=== PATIENT | female | born 1990 ===

== ENCOUNTER 2018-04-30 15:24 | Emergency (ER) | payer MEDICAID ==
--- NOTE | 2018-04-30 15:47 | ED PDOC ---
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 Pain is constant, but it worsen with deep inspiration. Patient denies abdominal pain, fever, sob, urinary symptoms, POWELL, neck pain, diplopia, dysarthria, weakness, paresthesais, or abnormal gait. Time/Duration: Other (see hpi) Context: Home Past Medical History - Provider Review Nursing Documentation Reviewed: Yes - Cardiac Hx Cardiac Disorders: Yes - Pulmonary Hx Respiratory Disorders: Yes Hx Pulmonary Embolism: Yes - Gastrointestinal Hx Gastrointestinal Disorders: Yes Hx Crohn's Disease: Yes - Psychiatric Hx Substance Use: No - Surgical History Hx Cholecystectomy: Yes Other/Comment: IVC Filter Family/Social History - Physician Review Nursing Documentation Reviewed: Yes Family/Social History: Other (noncontributory) Smoking Status: Light Smoker < 10 Cigarettes Daily Hx Alcohol Use: No Hx Substance Use: No Allergies/Home Meds Allergies/Adverse Reactions: Allergies acetaminophen [From Percocet] Allergy (Verified 04/30/18 15:35) URTICARIA morphine Allergy (Verified 04/30/18 15:35) URTICARIA oxycodone [From Percocet] Allergy (Verified 04/30/18 15:35) URTICARIA Review of Systems - Review of Systems Constitutional: Normal. absent: Fatigue, Weight Change, Fevers Eyes: Normal ENT: Normal Respiratory: Normal. absent: SOB, Cough Cardiovascular: Chest Pain. absent: Palpitations, Edema, Calf Pain, MORALES, Orthopnea, Syncope Gastrointestinal: Normal. absent: Abdominal Pain, Nausea, Vomiting Genitourinary Female: Normal. absent: Dysuria, Frequency, Hematuria Musculoskeletal: Normal Skin: Normal. absent: Rash Neurological: Dizziness. absent: Headache, Focal Weakness, Gait Changes, Speech Changes, Facial Droop, Disequilibrium Endocrine: Normal Hemo/Lymphatic: Normal Psychiatric: Normal Physical Exam Vital Signs Temp Pulse Resp BP Pulse Ox 04/30/18 16:09 98.4 F 66 17 116/67 98 Temperature: Afebrile Blood Pressure: Normal Pulse: Regular Respiratory Rate: Normal Appearance: Positive for: Well-Appearing, Non-Toxic, Comfortable Pain Distress: None Mental Status: Positive for: Alert and Oriented X 3 - Systems Exam Head: Present: Atraumatic, Normocephalic Pupils: Present: PERRL Extroacular Muscles: Present: EOMI Conjunctiva: Present: Normal Mouth: Present: Moist Mucous Membranes Neck: Present: Normal Range of Motion Respiratory/Chest: Present: Clear to Auscultation, Good Air Exchange. No: Respiratory Distress, Accessory Muscle Use, Wheezes, Decreased Breath Sounds, Rales, Retracting, Rhonchi, Tender to Palpation Cardiovascular: Present: Regular Rate and Rhythm, Normal S1, S2. No: Murmurs Abdomen: No: Tenderness, Distention, Peritoneal Signs, Rebound, Guarding Back: Present: Normal Inspection. No: CVA Tenderness, Midline Tenderness, Paraspinal Tenderness, Pain with Leg Raise Upper Extremity: Present: Normal Inspection, Normal ROM, NORMAL PULSES. No: Cyanosis, Edema Lower Extremity: Present: Normal Inspection, NORMAL PULSES, Normal ROM. No: Edema Neurological: Present: GCS=15, CN II-XII Intact, Speech Normal, Motor Func Grossly Intact, Normal Sensory Function, Normal Cerebellar Funct, Gait Normal Skin: Present: Warm, Dry, Normal Color. No: Rashes Psychiatric: Present: Alert, Oriented x 3, Normal Insight, Normal Concentration Medical Decision Making ED Course and Treatment: 04/30/18 20:23 Re-evaluation. Patient feels better. Discussed results and plan with patient who expresses understanding. All questions answered and there is agreement with the plan to discharge home with instructions. Patient stable for discharge. Return if symptoms persist or worsen. Patient stated Pepcid IVP improved her symptoms, and she is requesting similar medication. Patient was recommended to f/u PMD tomorrow, and to return to ED if symptoms worsen. Re-evaluation Time: 20:24 Reassessment Condition: Re-examined, Improved - Lab Interpretations Lab Results: 04/30/18 15:55 04/30/18 15:55 Lab Results 04/30/18 17:50: Urine Color Yellow, Urine Appearance Clear, Urine pH 8.0, Ur Specific [place] 1.015, Urine Protein Negative, Urine Glucose (UA) Negative, Urine Ketones Negative, Urine Blood Negative, Urine Nitrate Negative, Urine Bilirubin Negative, Urine Urobilinogen 0.2, Ur Leukocyte Esterase Negative, Urine HCG, Qual Negative 04/30/18 15:55: Sodium 142, Potassium 3.9, Chloride 104, Carbon Dioxide 26, Anion Gap 16, BUN 11, Creatinine 0.6 L, Est GFR ( Amer) > 60, Est GFR ( Non-Af Amer) > 60, Random Glucose 102, Calcium 9.7, Magnesium 1.8, Total Bilirubin 0.3, AST 28, ALT 24, Alkaline Phosphatase 75, Lactate Dehydrogenase 374, Total Creatine Kinase 69, Troponin I < 0.01, Total Protein 7.9, Albumin 4.6 , Globulin 3.3, Albumin/Globulin Ratio 1.4 04/30/18 15:55: PT 11.7, INR 1.03, APTT 36.8 H 04/30/18 15:55: WBC 7.4, RBC 4.40, Hgb 13.4, Hct 39.2, MCV 89.1, MCH 30.5, MCHC 34.2, RDW 13.5, Plt Count 140, MPV 13.0 H, Gran % 60.2, Lymph % (Auto) 32.4, [place] % (Auto) 5.8, Eos % (Auto) 1.5, Baso % (Auto) 0.1, Gran # 4.45, Lymph # ( Auto) 2.4, [place] # (Auto) 0.4, Eos # (Auto) 0.1, Baso # (Auto) 0.01 I have reviewed the lab results: Yes Interpretation: No clinic. lab abnormalty - RAD Interpretation Narrative RAD Interpretations (Text): 04/30/18 19:56 Chest x-rays: [facility] 04/30/18 20:25 CT Scan FINDINGS: Heart, aorta and Pulmonary arteries: Heart size is normal. There is no pericardial effusion.There is no aneurysm or dissection.There are no pulmonary emboli. Lungs and pleural spaces: Trachea and main bronchi are patent.There is no pneumothorax. There is minimal scarring at the right apex. There is a small granuloma at the right apex.There is dependent atelectasis bilaterally. There is no lobar or segmental consolidation. There are no effusions. Mediastinum: The esophagus is unremarkable. There is residual thymic tissue in anterior mediastinum. There are no pathologically enlarged mediastinal or hilar nodes. Thyroid: Thyroid is unremarkable Bones/joints: There are no acute osseous abnormalities. Soft tissues: unremarkable Upper abdomen: There are no acute abnormalities in the visualized portion of the abdomen.The spleen is enlarged. The gallbladder is absent. IMPRESSION: No aneurysm, dissection or pulmonary embolus; splenomegaly Additional nonemergent findings as described above. Radiology Orders: 04/30/18 15:48 CHEST PORTABLE [RAD] Stat 04/30/18 15:49 ANGIO CHEST PE PROTOCOL [CT] Stat - EKG Interpretation Interpreted by ED Physician: Yes (NSR @ [address] changes) Type: 12 lead EKG Comparison: No previous EKG avail. - Medication Orders Current Medication Orders: Discontinued Medications Sodium Chloride (Sodium Chloride 0.9%) 1,000 mls @ 999 mls/hr IV .Q1H1M STA Stop: 04/30/18 16:50 Last Admin: 04/30/18 17:05 Dose: 999 mls/hr eMAR Start Stop Document 04/30/18 17:05 [facility] (Rec: 04/30/18 17:05 [id number] Intravenous Solution Start Date 04/30/18 Start Time 17:05 End Date 04/30/18 End time 18:05 Total Infusion Time 60 Famotidine (Pepcid 20mg/50ml Premix) 20 mg in 50 mls @ 100 mls/hr IVPB STAT STA Stop: 04/30/18 16:26 Last Admin: 04/30/18 17:04 Dose: 100 mls/hr eMAR Start Stop Document 04/30/18 17:04 [facility] (Rec: 04/30/18 17:05 [facility]-[id number]) Intravenous Solution Start Date 04/30/18 Start Time 17:05 End Date 04/30/18 End time 17:35 Total Infusion Time 30 Disposition/Present on Arrival - Present on Arrival Any Indicators Present on Arrival: No History of DVT/PE: Yes History of Uncontrolled Diabetes: No Urinary Catheter: No History of Decub. Ulcer: No History Surgical Site Infection Following: None - Disposition Have Diagnosis and Disposition been Completed?: Yes Diagnosis: Non-cardiac chest pain Disposition: HOME/ ROUTINE Disposition Time: 20:32 Patient Plan: Discharge Condition: IMPROVED Discharge Instructions (ExitCare): Acid Reflux (Gastroesophageal Reflux Disease ), Adult (DC) Additional Instructions: Call private doctor for follow up visit in 1-2 days. Take medication as instructed. Return to emergency if symptoms worsen. Prescriptions: Famotidine [Pepcid] 40 mg PO DAILY #20 tablet Sucralfate [Carafate] 1 gm PO DAILY #20 tab Referrals: Cecil Rios MD [Primary Care Provider] - Follow up with primary Rolando Snell MD [Medical Doctor] - Follow up with primary Forms: [facility] ([place]), WORK NOTE
[2018-04-30] MEDS ORDERED: Sodium Chloride 0.9% 1,000 ML IV STA (15:50)
[2018-04-30] MEDS ORDERED: Famotidine 20mg/50ml 20 MG/50 ML BAG IVPB STA (15:57)
[2018-04-30 16:10] VITALS: TEMP 98.4
[2018-04-30 16:16] LABS: ALB/GLOB RATIO 1.4 (1.1-1.8); ALBUMIN 4.6 g/dL (3.0-4.8); ALT/SGPT 24 U/L (7-56); AST/SGOT 28 U/L (14-36); BLOOD UREA NITROGEN 11 mg/dL (7-21); CALCIUM 9.7 mg/dL (8.4-10.5); GFR AFRICAN-AMERICAN > 60; GFR NON-AFRICAN AMERICAN > 60
[2018-04-30 16:17] LABS: BASO # 0.01 K/mm3 (0.0-2.0); BASO % 0.1 % (0.0-3.0); EOS # 0.1 (0.0-0.7); EOS % 1.5 % (1.5-5.0); GRAN # 4.45 (1.4-6.5); GRAN % 60.2 % (50.0-68.0); HEMOGLOBIN 13.4 g/dL (12.0-16.0); LYMPH # 2.4 (1.2-3.4); LYMPH % 32.4 % (22.0-35.0); MEAN CELL VOLUME 89.1 fl (80.0-105.0); MEAN CORPUSCULAR HEMOGLOBIN 30.5 pg (25.0-35.0); MEAN CORPUSCULAR HGB CONC 34.2 g/dl (31.0-37.0); MONO # 0.4 (0.1-0.6); MONO % 5.8 % (1.0-6.0); RBC 4.4 10^6/uL (3.5-6.1); RED CELL DISTRIBUTION WIDTH 13.5 % (11.5-14.5); WHITE BLOOD COUNT 7.4 10^3/ul (4.5-11.0)
[2018-04-30 16:27] LABS: TROPONIN I < 0.01 ng/mL
[2018-04-30] MEDS ORDERED: Iohexol 240 (50 ml) ONE (16:51)
[2018-04-30 17:48] LABS: INR 1.03 (0.93-1.08); PARTIAL THROMBOPLASTIN TIME 36.8 Seconds (25.1-36.5); PROTHROMBIN TIME 11.7 SECONDS (9.4-12.5)
[2018-04-30 18:43] LABS: URINE BILIRUBIN NEGATIVE (NEGATIVE); URINE BLOOD NEGATIVE (NEGATIVE); URINE GLUCOSE (UA) NEGATIVE (NEGATIVE); URINE LEUKOCYTE ESTERASE NEGATIVE Leu/uL (NEGATIVE); URINE PROTEIN NEGATIVE mg/dL (<30 mg/dL); URINE UROBILINOGEN 0.2 E.U./dL (<1 E.U./dL)
[2018-04-30 18:47] LABS: URINE APPEARANCE CLEAR (CLEAR); URINE COLOR YELLOW (YELLOW)
[2018-04-30 18:48] LABS: HCG,QUALITATIVE URINE NEGATIVE (NEGATIVE)
--- NOTE | 2018-04-30 20:15 | CT ---
EXAM: CT Angiography Chest With Intravenous Contrast EXAM DATE/TIME: 04/30/2018 3:49 PM CLINICAL HISTORY: 27 years old, female; Pain; Chest pain; Prior surgery; Surgery type: Ivc filter; Additional info: Left sided cp R/O pe TECHNIQUE: Axial computed tomographic angiography images of the chest with intravenous contrast using pulmonary embolism protocol. All CT scans at this facility use one or more dose reduction techniques, viz.: automated exposure control; ma/kV adjustment per patient size (including targeted exams where dose is matched to indication; i.e. head); or iterative reconstruction technique. MIP reconstructed images were created and reviewed. Coronal and sagittal reformatted images were created and reviewed. CONTRAST: 96 mL of visipaque administered intravenously. COMPARISON: There are no prior studies for comparison. FINDINGS: Heart, aorta and Pulmonary arteries: Heart size is normal. There is no pericardial effusion.There is no aneurysm or dissection.There are no pulmonary emboli. Lungs and pleural spaces: Trachea and main bronchi are patent.There is no pneumothorax. There is minimal scarring at the right apex. There is a small granuloma at the right apex.There is dependent atelectasis bilaterally. There is no lobar or segmental consolidation. There are no effusions. Mediastinum: The esophagus is unremarkable. There is residual thymic tissue in anterior mediastinum. There are no pathologically enlarged mediastinal or hilar nodes. Thyroid: Thyroid is unremarkable Bones/joints: There are no acute osseous abnormalities. Soft tissues: unremarkable Upper abdomen: There are no acute abnormalities in the visualized portion of the abdomen.The spleen is enlarged. The gallbladder is absent. IMPRESSION: No aneurysm, dissection or pulmonary embolus; splenomegaly Additional nonemergent findings as described above.
[2018-04-30 20:49] VITALS: BP 112/66; PULSE 64; RESP 18; O2SAT 99
--- NOTE | 2018-04-30 22:28 | CARD ---
APPROVED REPORT EKG Measurement Heart [id number] <Conclusion> Normal sinus rhythm Normal ECG
--- NOTE | 2018-05-01 08:26 | RAD ---
HISTORY: left sided pleuritic CP COMPARISON: KeyNo prior. FINDINGS: LUNGS: No active pulmonary disease. PLEURA: No significant pleural effusion identified, no pneumothorax apparent. CARDIOVASCULAR: Normal. OSSEOUS STRUCTURES: No significant abnormalities. VISUALIZED UPPER ABDOMEN: Normal. OTHER FINDINGS: None. IMPRESSION: No active disease. Concordant results with the preliminary interpretation rendered by the emergency department physician procedure.
== END 2018-04-30 20:49 | disposition home or self-care (01) ==
LOC: MERGE 15:24 → ED 15:24
DX: R07.89 Other chest pain (principal); Z86.711 Personal history of pulmonary embolism; F17.210 Nicotine dependence, cigarettes, uncomplicated
CPT/HCPCS: 71045; 71275; 80053; 81003; 82550; 83615; 83735; 84484; 84703; 85025; 85610; 85730; 93005; 96365; 99284; J7030; Q9966

== ENCOUNTER 2018-07-19 14:49 | Emergency (ER) | payer MEDICAID ==
[2018-07-19 14:49] VITALS: BMI 28.3
[2018-07-19 15:12] VITALS: TEMP 98
[2018-07-19] MEDS ORDERED: Sodium Chloride 0.9% 500 ML IV STA (15:37)
--- NOTE | 2018-07-19 15:51 | ED PDOC ---
Arrival/HPI - General Chief Complaint: Abdominal Pain Time Seen by Provider: 07/19/18 15:24 Historian: Patient - History of Present Illness Narrative History of Present Illness (Text): 07/19/18 15:35 37 F with PMHx of DVT/PE presents with cc of aching left-sided abdominal pain and diarrhea for past 3 days. Patient reports diarrhea is loose in quality and notes a headache. Patient reports vomiting 4-5 times since onset, but did not vomit today due to "empty stomach." Patient denies blood in stool, recent travel, any changes in diet, or any other complaints. PMD: Cecil Rios Time/Duration: Other (onset: past 3 days) Symptom Onset: Sudden Symptom Course: Unchanged Quality: Aching Activities at Onset: Light Past Medical History - Provider Review Nursing Documentation Reviewed: Yes - Infectious Disease Hx of Infectious Diseases: None - Reproductive Menopause: No - Cardiac Hx Cardiac Disorders: Yes - Pulmonary Hx Respiratory Disorders: Yes Hx Pulmonary Embolism: Yes - Neurological Hx Neurological Disorder: No - HEENT Hx HEENT Disorder: No - Renal Hx Renal Disorder: Yes Hx Kidney Stones: Yes - Endocrine/Metabolic Hx Endocrine Disorders: No - Hematological/Oncological Hx Anemia: Yes - Integumentary Hx Dermatological Disorder: Yes Other/Comment: Multiple tattoos - Musculoskeletal/Rheumatological Hx Falls: No - Gastrointestinal Hx Gastrointestinal Disorders: Yes Hx Crohn's Disease: Yes - Genitourinary/Gynecological Hx Genitourinary Disorders: No - Psychiatric Hx Anxiety: Yes Hx Depression: Yes Hx Substance Use: No - Surgical History Hx Cholecystectomy: Yes (2008) Other/Comment: IVC filter - Anesthesia Hx Anesthesia: Yes Hx Anesthesia Reactions: No Hx Malignant Hyperthermia: No - Suicidal Assessment Feels Threatened In Home Enviroment: No Family/Social History - Physician Review Nursing Documentation Reviewed: Yes Family/Social History: No Known Family HX Smoking Status: Heavy Smoker > 10 Cigarettes Daily Hx Alcohol Use: No Hx Substance Use: No Allergies/Home Meds Allergies/Adverse Reactions: Allergies dicyclomine HCl [From Bentyl] Allergy (Intermediate, Verified 07/19/18 15:12) RASH oxycodone HCl [From Percocet] Allergy (Intermediate, Verified 07/19/18 15:12) RASH HIVES Iodinated Contrast- Oral and IV Dye Allergy (Mild, Verified 07/19/18 15:12) Hives acetaminophen [From Percocet] Allergy (Verified 07/19/18 15:12) URTICARIA morphine Allergy (Verified 07/19/18 15:12) RASH oxycodone [From Percocet] Allergy (Verified 07/19/18 15:12) URTICARIA Review of Systems - Physician Review All systems were reviewed & negative as marked: Yes (All other systems negative except that noted in the HPI.) Physical Exam - Physical Exam Narrative Physical Exam (Text): 07/19/18 15:35 Gen: VS reviewed, alert, well developed, well nourished, nontoxic, mild distress. ENT: normal pharynx. Eye: EOMI, PERRL. Neck: no JVD, supple, no adenopathy. CV: regular rate, regular rhythm, no rubs, no murmur, no gallops, S1, S2, pulses equal and strong. Pulm: no distress, clear to auscultation, no wheeze, no rhonchi, breath sounds equal, no rales. Ext: no edema. Skin: good color, no rash, no cyanosis. Psych: responds appropriately to questions, normal affect. Neuro: oriented x 3, CN2-12 intact grossly, motor intact, sensation intact. Physical exam is normal except: -- Mild left lower abdominal tenderness Vital Signs Reviewed: Yes Vital Signs Temp Pulse Resp BP Pulse Ox 07/19/18 20:11 75 12 102/45 L 95 07/19/18 18:03 98 F 86 19 127/52 L 98 07/19/18 16:07 74 07/19/18 15:08 98 F 88 18 114/77 99 Temperature: Afebrile Blood Pressure: Normal Pulse: Regular Respiratory Rate: Normal Appearance: Positive for: Well-Appearing, Non-Toxic, Comfortable Pain Distress: Mild Mental Status: Positive for: Alert and Oriented X 3 Medical Decision Making ED Course and Treatment: 07/19/18 15:35 Plan: -- Labs -- IV fluids -- POC Urine -- Urinalysis -- Reassess and disposition Prior Visits: Notes and results from previous visits were reviewed. Patient was last seen in the emergency department on 04/30/18 c/o left sided CP, and left jaw pain starting day prior to arrival. Patient was discharged home. Progress Notes: 07/19/18 18:19 patient denies allergy to tylenol, will rx for recurrence of pain. at this time am still awaiting for US to arrive for imaging 07/19/18 18:00 patient seen for acute vomiting, diarrhea and left lower abdominal pain. patient found to be , workup extended to rule out ectopic . with the leuks and bacteria in the urine, will empirically tx for uti in light of positive status. Assuming of undetermined location, would recommend patient return to the ED in 48 hours for serial hcg and US- patient is aware and agreeable to plan. 07/19/18 18:58 07/19/18 19:[address] lantigua - Lab Interpretations Microbiology Results: Microbiology Results 07/19/18 17:26 Urine,Clean Catch Urine Culture - Final No Growth (<1,000 CFU/ML) Lab Results: 07/19/18 18:39 07/19/18 15:55 Lab Results 07/19/18 18:39: WBC 8.0, RBC 4.70, Hgb 14.6, Hct 42.0, MCV 89.4, MCH 31.1, MCHC 34.8, RDW 13.5, Plt Count 152, MPV 13.6 H, Gran % 62.7, Lymph % (Auto) 31.0, [place] % (Auto) 4.5, Eos % (Auto) 1.6, Baso % (Auto) 0.2, Gran # 5.03, Lymph # ( Auto) 2.5, [place] # (Auto) 0.4, Eos # (Auto) 0.1, Baso # (Auto) 0.02 07/19/18 17:26: Beta HCG, Quant 528.26 H 07/19/18 15:55: Sodium 140, Potassium 4.4, Chloride 104, Carbon Dioxide 21, Anion Gap 20, BUN 12, Creatinine 0.5 L, Est GFR ( Amer) > 60, Est GFR ( Non-Af Amer) > 60, Random Glucose 89, Calcium 10.4, Total Bilirubin 0.5, AST 30 , ALT 23, Alkaline Phosphatase 78, Total Protein 8.8 H, Albumin 5.3 H, Globulin 3.6, Albumin/Globulin Ratio 1.5 07/19/18 15:55: Urine Color Yellow, Urine Appearance Sl cloudy, Urine pH 6.0, Ur Specific [place] >= 1.030, Urine Protein Negative, Urine Glucose (UA) Negative, Urine Ketones Negative, Urine Blood Negative, Urine Nitrate Negative, Urine Bilirubin Negative, Urine Urobilinogen 0.2, Ur Leukocyte Esterase Moderate H, Urine RBC Negative, Urine WBC 2 - 5, Ur Epithelial Cells 3 - 4, Urine Bacteria Mod - RAD Interpretation Radiology Orders: 07/19/18 16:23 OB TRANSVAGINAL [US] Stat - Medication Orders Current Medication Orders: Discontinued Medications Acetaminophen (Tylenol 325mg Tab) 975 mg PO STAT STA Stop: 07/19/18 18:19 Last Admin: 07/19/18 19:43 Dose: 975 mg Sodium Chloride (Sodium Chloride 0.9%) 500 mls @ 999 mls/hr IV .Q31M STA Stop: 07/19/18 16:07 Last Admin: 07/19/18 16:11 Dose: 999 mls/hr eMAR Start Stop Document 07/19/18 16:11 [facility] (Rec: 07/19/18 16:11 [facility] [id number]) Intravenous Solution Start Date 07/19/18 Start Time 16:11 End Date 07/19/18 End time 16:45 Total Infusion Time 34 - Scribe Statement The provider has reviewed the documentation as recorded by the Scribe [address] All medical record entries made by the Scribe were at my direction and personally dictated by me. I have reviewed the chart and agree that the record accurately reflects my personal performance of the history, physical exam, medical decision making, and the department course for this patient. I have also personally directed, reviewed, and agree with the discharge instructions and disposition. Disposition/Present on Arrival - Present on Arrival Any Indicators Present on Arrival: No History of DVT/PE: Yes History of Uncontrolled Diabetes: No Urinary Catheter: No History of Decub. Ulcer: No History Surgical Site Infection Following: None - Disposition Have Diagnosis and Disposition been Completed?: Yes Diagnosis: Gastroenteritis, UTI (lower urinary tract infection), Urinary tract infection during , Ectopic Disposition: HOME/ ROUTINE Disposition Time: 21:23 Condition: UNKNOWN Discharge Instructions (ExitCare): Urinary Tract Infection, Adult (DC), Ectopic (DC) Print Language: SUDANESE Additional Instructions: return in 48 hours for repeat [facility] Prescriptions: Cephalexin [cephalexin] 500 mg PO QID 7 Days #28 cap Referrals: [facility] [Outside] - Follow up with primary Cecil Rios MD [Primary Care Provider] - Follow up with primary Laura Fraser MD [Staff Provider] - Follow up with primary Forms: [employer] ([place]i)
[2018-07-19 16:09] LABS: URINE BILIRUBIN NEGATIVE (NEGATIVE); URINE BLOOD NEGATIVE (NEGATIVE); URINE GLUCOSE (UA) NEGATIVE (NEGATIVE); URINE LEUKOCYTE ESTERASE MODERATE Leu/uL (NEGATIVE); URINE PROTEIN NEGATIVE mg/dL (<30 mg/dL); URINE UROBILINOGEN 0.2 E.U./dL (<1 E.U./dL)
[2018-07-19 16:12] LABS: URINE APPEARANCE SL CLOUDY (CLEAR); URINE COLOR YELLOW (YELLOW)
[2018-07-19 16:26] LABS: URINE RBC NEGATIVE /hpf (0-2)
[2018-07-19 16:27] LABS: URINE BACTERIA MOD (NEG)
[2018-07-19 16:32] LABS: ALB/GLOB RATIO 1.5 (1.1-1.8); ALBUMIN 5.3 g/dL (3.0-4.8); CALCIUM 10.4 mg/dL (8.4-10.5); GFR AFRICAN-AMERICAN > 60; GFR NON-AFRICAN AMERICAN > 60
[2018-07-19 16:34] LABS: ALT/SGPT 23 U/L (7-56); AST/SGOT 30 U/L (14-36); BLOOD UREA NITROGEN 12 mg/dL (7-21)
[2018-07-19 18:50] LABS: BASO # 0.02 K/mm3 (0.0-2.0); BASO % 0.2 % (0.0-3.0); EOS # 0.1 (0.0-0.7); EOS % 1.6 % (1.5-5.0); GRAN # 5.03 (1.4-6.5); GRAN % 62.7 % (50.0-68.0); HEMOGLOBIN 14.6 g/dL (12.0-16.0); LYMPH # 2.5 (1.2-3.4); MEAN CELL VOLUME 89.4 fl (80.0-105.0); MEAN CORPUSCULAR HEMOGLOBIN 31.1 pg (25.0-35.0); MEAN CORPUSCULAR HGB CONC 34.8 g/dl (31.0-37.0); MEAN PLATELET VOLUME 13.6 fl (7.0-11.0); MONO # 0.4 (0.1-0.6); MONO % 4.5 % (1.0-6.0); RBC 4.7 10^6/uL (3.5-6.1); RED CELL DISTRIBUTION WIDTH 13.5 % (11.5-14.5)
[2018-07-19 20:12] VITALS: BP 102/45; PULSE 75; RESP 12; O2SAT 95
--- NOTE | 2018-07-20 11:15 | US ---
Date of service: 07/19/2018 PROCEDURE: OB Pelvic Ultrasound HISTORY: pain, rule out ectopic COMPARISON: None available. FINDINGS: UTERUS: Single intrauterine gestational sac which is irregular and partially collapsed with. pole and yolk sac are not visualized. Mar-gestational hemorrhage: None. Uterus measures 9.9 x 5.3 x 7.2 cm. No mass CERVIX: Long and closed. No cervical abnormality seen. RIGHT OVARY: Measures 3.7 x 2.3 x 2.9 cm. No mass. Normal flow. LEFT OVARY: Measures 2.2 x 1.9 x 3.0 cm. No mass. Normal flow. FREE FLUID: None. OTHER FINDINGS: None. IMPRESSION: Irregular empty gestational sac concerning for failure/ blighted ovum. A preliminary report was provided by [facility].
== END 2018-07-19 20:11 | disposition home or self-care (01) ==
LOC: ED 14:49
DX: O00.90 Unspecified ectopic pregnancy without intrauterine pregnancy (principal); O08.83 Urinary tract infection following an ectopic and molar pregnancy; O26.899 Other specified pregnancy related conditions, unspecified trimester; Z3A.00 Weeks of gestation of pregnancy not specified; K52.9 Noninfective gastroenteritis and colitis, unspecified; F17.210 Nicotine dependence, cigarettes, uncomplicated
CPT/HCPCS: 76817; 80053; 81001; 84702; 85025; 87086; 96360; 99284; J7040

== ENCOUNTER 2018-07-22 20:31 | Emergency (ER) | payer MEDICAID ==
[2018-07-22 20:32] VITALS: BMI 28.3
--- NOTE | 2018-07-22 21:25 | ED PDOC ---
Arrival/HPI - General Chief Complaint: Chest Pain Time Seen by Provider: 07/22/18 20:38 Historian: Patient - History of Present Illness Narrative History of Present Illness (Text): 07/22/18 21:24 Elvia Garcia is a 27 year old female smoker, whose past medical history includes PE, DVT s/p IVC filter, and ulcerative colitis, who presents to the Emergency department complaining of chest pain. Patient states she was lying down in bed this afternoon when she began experiencing sharp left-sided chest pain. Patient denies any fever, chills, shortness of breath, nausea, vomiting, diarrhea, urinary symptoms, back pain, neck pain, headache, dizziness, or any other complaints. Symptom Onset: Gradual Symptom Course: Unchanged Activities at Onset: Light Context: Home Past Medical History - Provider Review Nursing Documentation Reviewed: Yes - Infectious Disease Hx of Infectious Diseases: None - Cardiac Hx Cardiac Disorders: Yes - Pulmonary Hx Respiratory Disorders: Yes Hx Pulmonary Embolism: Yes - Neurological Hx Neurological Disorder: No - HEENT Hx HEENT Disorder: No - Renal Hx Renal Disorder: Yes Hx Kidney Stones: Yes - Endocrine/Metabolic Hx Endocrine Disorders: No - Hematological/Oncological Hx Anemia: Yes - Integumentary Hx Dermatological Disorder: Yes Other/Comment: Multiple tattoos - Musculoskeletal/Rheumatological Hx Falls: No - Gastrointestinal Hx Gastrointestinal Disorders: Yes Hx Crohn's Disease: Yes - Genitourinary/Gynecological Hx Genitourinary Disorders: No - Psychiatric Hx Anxiety: Yes Hx Depression: Yes Hx Substance Use: No - Surgical History Hx Cholecystectomy: Yes (2008) Other/Comment: IVC filter - Anesthesia Hx Anesthesia: Yes Hx Anesthesia Reactions: No Hx Malignant Hyperthermia: No - Suicidal Assessment Feels Threatened In Home Enviroment: No Family/Social History - Physician Review Nursing Documentation Reviewed: Yes Family/Social History: Unknown Family HX Smoking Status: Heavy Smoker > 10 Cigarettes Daily Hx Alcohol Use: No Hx Substance Use: No Allergies/Home Meds Allergies/Adverse Reactions: Allergies dicyclomine HCl [From Bentyl] Allergy (Intermediate, Verified 07/19/18 15:12) RASH oxycodone HCl [From Percocet] Allergy (Intermediate, Verified 07/19/18 15:12) RASH HIVES Iodinated Contrast- Oral and IV Dye Allergy (Mild, Verified 07/19/18 15:12) Hives acetaminophen [From Percocet] Allergy (Verified 07/19/18 15:12) URTICARIA morphine Allergy (Verified 07/19/18 15:12) RASH oxycodone [From Percocet] Allergy (Verified 07/19/18 15:12) URTICARIA Review of Systems - Physician Review All systems were reviewed & negative as marked: Yes - Review of Systems Constitutional: Normal. absent: Fevers Eyes: Normal ENT: Normal Respiratory: Normal. absent: SOB, Cough Cardiovascular: Chest Pain Gastrointestinal: Normal. absent: Abdominal Pain, Diarrhea, Nausea, Vomiting Genitourinary Female: Normal. absent: Dysuria, Frequency, Hematuria, Urine Output Changes Musculoskeletal: Normal. absent: Back Pain, Neck Pain Skin: Normal. absent: Rash Neurological: Normal. absent: Headache, Dizziness Endocrine: Normal Hemo/Lymphatic: Normal Psychiatric: Normal Physical Exam Vital Signs Reviewed: Yes Vital Signs Temp Pulse Resp BP Pulse Ox 07/22/18 23:30 98.0 F 73 16 110/63 100 07/22/18 21:10 98.6 F 72 17 124/77 100 Temperature: Afebrile Blood Pressure: Normal Pulse: Regular Respiratory Rate: Normal Appearance: Positive for: Well-Appearing, Non-Toxic, Comfortable Pain Distress: None Mental Status: Positive for: Alert and Oriented X 3 - Systems Exam Head: Present: Atraumatic, Normocephalic Pupils: Present: PERRL Extroacular Muscles: Present: EOMI Conjunctiva: Present: Normal Mouth: Present: Moist Mucous Membranes Neck: Present: Normal Range of Motion. No: Meningeal Signs, MIDLINE TENDERNESS , Paraspinal Tenderness Respiratory/Chest: Present: Clear to Auscultation, Good Air Exchange, Tender to Palpation. No: Respiratory Distress, Accessory Muscle Use Cardiovascular: Present: Regular Rate and Rhythm, Normal S1, S2. No: Murmurs Abdomen: No: Tenderness, Distention, Peritoneal Signs Back: Present: Normal Inspection. No: CVA Tenderness, Midline Tenderness, Paraspinal Tenderness Upper Extremity: Present: Normal Inspection. No: Cyanosis, Edema Lower Extremity: Present: Normal Inspection. No: Edema Neurological: Present: GCS=15, CN II-XII Intact, Speech Normal Skin: Present: Warm, Dry, Normal Color. No: Rashes Psychiatric: Present: Alert, Oriented x 3, Normal Insight, Normal Concentration Medical Decision Making ED Course and Treatment: 07/22/18 21:24 Impression: 27 year old female complaining of sharp left-sided chest pain since this afternoon. Plan: -- EKG -- Labs, D-dimer -- Reassess and disposition Prior Visits: Notes and results from previous visits were reviewed. Progress Notes: Reviewed EKG, NSR At 77 bpm. Sinus arrhythmia. No acute changes. 07/22/18 23:29 On reevaluation the patient feels better and is in no acute distress. I have discussed the results and plan with the patient, who expresses understanding. Patient is stable for discharge. Patient was instructed to follow up with physician/clinic in 1-2 days or return if symptoms persist/worsen or new concerning symptoms arise. - Lab Interpretations Lab Results: 07/22/18 22:02 07/22/18 22:02 Lab Results 07/22/18 22:02: WBC 8.2, RBC 4.43, Hgb 13.9, Hct 39.8, MCV 89.8, MCH 31.4, MCHC 34.9, RDW 13.2, Plt Count 137, MPV 12.5 H 07/22/18 22:02: Sodium 141, Potassium 3.6, Chloride 106, Carbon Dioxide 22, Anion Gap 17, BUN 11, Creatinine 0.5 L, Est GFR ( Amer) > 60, Est GFR ( Non-Af Amer) > 60, Random Glucose 93, Calcium 9.7, Total Bilirubin 0.2, AST 32, ALT 19, Alkaline Phosphatase 65, Lactate Dehydrogenase 385, Total Creatine Kinase 97, Troponin I < 0.01, Total Protein 8.0, Albumin 4.8, Globulin 3.2, Albumin/Globulin Ratio 1.5 07/22/18 22:02: PT 11.9, INR 1.04, APTT 30.6, D-Dimer, Quantitative < 200 I have reviewed the lab results: Yes - EKG Interpretation Interpreted by ED Physician: Yes Type: 12 lead EKG - Medication Orders Current Medication Orders: Discontinued Medications Acetaminophen (Tylenol 325mg Tab) 650 mg PO STAT STA Stop: 07/22/18 23:19 Last Admin: 07/22/18 23:33 Dose: 650 mg MAR Pain/Vitals Document 07/22/18 23:33 IT (Rec: 07/22/18 23:34 YOLANDA [id number]) Pain Reassessment Is This A Pain ReAssessment? No Sleep Is patient sleeping during reassessment? No Presence of Pain Presence of Pain Yes Pain Scale Used Pain Scale Used Numeric - Scribe Statement The provider has reviewed the documentation as recorded by the Scribdiamante Galarza All medical record entries made by the Scribe were at my direction and personally dictated by me. I have reviewed the chart and agree that the record accurately reflects my personal performance of the history, physical exam, medical decision making, and the department course for this patient. I have also personally directed, reviewed, and agree with the discharge instructions and disposition. Disposition/Present on Arrival - Present on Arrival Any Indicators Present on Arrival: No History of DVT/PE: Yes History of Uncontrolled Diabetes: No Urinary Catheter: No History of Decub. Ulcer: No History Surgical Site Infection Following: None - Disposition Have Diagnosis and Disposition been Completed?: Yes Diagnosis: Musculoskeletal chest pain Disposition: HOME/ ROUTINE Disposition Time: 23:29 Patient Plan: Discharge Patient Problems: Current Active Problems Problem Status Onset Musculoskeletal chest pain Acute Condition: STABLE Discharge Instructions (ExitCare): Costochondritis (DC), Chest Pain (ED) Additional Instructions: Rest/no strenuous physical activity/Tylenol as directed/follow up with your doctor this week Forms: [employer] (Italian)
[2018-07-22 22:20] LABS: ALB/GLOB RATIO 1.5 (1.1-1.8); ALBUMIN 4.8 g/dL (3.0-4.8); ALT/SGPT 19 U/L (7-56); AST/SGOT 32 U/L (14-36); BLOOD UREA NITROGEN 11 mg/dL (7-21); CALCIUM 9.7 mg/dL (8.4-10.5); GFR NON-AFRICAN AMERICAN > 60
[2018-07-22 22:31] LABS: INR 1.04; PARTIAL THROMBOPLASTIN TIME 30.6 Seconds (25.1-36.5); PROTHROMBIN TIME 11.9 SECONDS (9.4-12.5); TROPONIN I < 0.01 ng/mL
[2018-07-22 22:33] LABS: HEMOGLOBIN 13.9 g/dL (12.0-16.0); MEAN CELL VOLUME 89.8 fl (80.0-105.0); MEAN CORPUSCULAR HEMOGLOBIN 31.4 pg (25.0-35.0); MEAN CORPUSCULAR HGB CONC 34.9 g/dl (31.0-37.0); MEAN PLATELET VOLUME 12.5 fl (7.0-11.0); RBC 4.43 10^6/uL (3.5-6.1); RED CELL DISTRIBUTION WIDTH 13.2 % (11.5-14.5); WHITE BLOOD COUNT 8.2 10^3/ul (4.5-11.0)
[2018-07-22 22:37] LABS: D DIMER < 200 ng/mlDDU (0-243)
[2018-07-22 23:35] VITALS: O2SAT 100
[2018-07-22 23:41] VITALS: BP 110/63; PULSE 73; RESP 16; TEMP 98
--- NOTE | 2018-07-23 19:26 | CARD ---
APPROVED REPORT Date of service: 07/22/2018 EKG Measurement Heart [id number] <Conclusion> Normal sinus rhythm with sinus arrhythmia Normal ECG
== END 2018-07-23 00:05 | disposition home or self-care (01) ==
LOC: ED 20:31
DX: R07.89 Other chest pain (principal); F17.210 Nicotine dependence, cigarettes, uncomplicated

== ENCOUNTER 2018-12-17 15:17 | Emergency (ER) | payer MEDICAID ==
[2018-12-17 15:35] VITALS: RESP 18; TEMP 99.2; O2SAT 98
--- NOTE | 2018-12-17 15:43 | ED PDOC ---
Arrival/HPI - General Chief Complaint: Shortness Of Breath Historian: Patient - History of Present Illness Narrative History of Present Illness (Text): 12/17/18 15:39 28 y/o female, pmh including dvt/pe, allergic to oxycodone but not allergic to morphine/dilaudid, c/o chest pain and painful breathing x 2 days. Pt. stated that she has coughing for several days, +smoker, stated that she has painful breathing, no fever or chills, no leg or thigh pain, no numbness or tingling, no palpitation, no rash, no other medical or psychological complaints. Past Medical History - Provider Review Nursing Documentation Reviewed: Yes - Infectious Disease Hx of Infectious Diseases: None - Cardiac Hx Cardiac Disorders: Yes - Pulmonary Hx Respiratory Disorders: Yes Hx Pulmonary Embolism: Yes - Neurological Hx Neurological Disorder: No - HEENT Hx HEENT Disorder: No - Renal Hx Renal Disorder: Yes Hx Kidney Stones: Yes - Endocrine/Metabolic Hx Endocrine Disorders: No - Hematological/Oncological Hx Anemia: Yes - Integumentary Hx Dermatological Disorder: Yes Other/Comment: Multiple tattoos - Musculoskeletal/Rheumatological Hx Falls: No - Genitourinary/Gynecological Hx Genitourinary Disorders: No - Psychiatric Hx Anxiety: Yes Hx Depression: Yes Hx Substance Use: No - Surgical History Hx Cholecystectomy: Yes (2008) Other/Comment: IVC filter - Anesthesia Hx Anesthesia: Yes Hx Anesthesia Reactions: No Hx Malignant Hyperthermia: No - Suicidal Assessment Feels Threatened In Home Enviroment: No Family/Social History - Physician Review Nursing Documentation Reviewed: Yes Family/Social History: Unknown Family HX Smoking Status: Heavy Smoker > 10 Cigarettes Daily Hx Alcohol Use: No Hx Substance Use: No Allergies/Home Meds Allergies/Adverse Reactions: Allergies dicyclomine HCl [From Bentyl] Allergy (Intermediate, Verified 12/17/18 15:26) RASH oxycodone HCl [From Percocet] Allergy (Intermediate, Verified 12/17/18 15:26) RASH HIVES Iodinated Contrast- Oral and IV Dye Allergy (Mild, Verified 12/17/18 15:26) Hives acetaminophen [From Percocet] Allergy (Verified 12/17/18 15:26) URTICARIA morphine Allergy (Verified 12/17/18 15:26) RASH oxycodone [From Percocet] Allergy (Verified 12/17/18 15:26) URTICARIA Review of Systems - Review of Systems Constitutional: absent: Fatigue, Fevers Eyes: absent: Vision Changes Respiratory: Cough. absent: SOB Cardiovascular: Chest Pain Gastrointestinal: absent: Abdominal Pain, Diarrhea, Nausea, Vomiting Musculoskeletal: absent: Back Pain Skin: absent: Rash, Pruritis Neurological: absent: Headache, Dizziness Psychiatric: absent: Anxiety, Depression Physical Exam Vital Signs Reviewed: Yes Vital Signs Temp Pulse Resp BP Pulse Ox 12/17/18 15:34 99.2 F 97 H 18 112/76 98 Temperature: Afebrile Blood Pressure: Normal Pulse: Regular Respiratory Rate: Normal Appearance: Positive for: Well-Appearing, Non-Toxic Pain Distress: Mild Mental Status: Positive for: Alert and Oriented X 3 - Systems Exam Head: Present: Atraumatic, Normocephalic Pupils: Present: PERRL Extroacular Muscles: Present: EOMI Conjunctiva: Present: Normal Mouth: Present: Moist Mucous Membranes Neck: Present: Normal Range of Motion Respiratory/Chest: Present: Clear to Auscultation, Good Air Exchange, Rhonchi (clear with coughing). No: Respiratory Distress, Accessory Muscle Use, Wheezes, Decreased Breath Sounds, Rales, Retracting, Tachypneic, Tender to Palpation Cardiovascular: Present: Regular Rate and Rhythm, Normal S1, S2. No: Murmurs Abdomen: No: Tenderness, Distention, Peritoneal Signs Back: Present: Normal Inspection Upper Extremity: Present: Normal Inspection. No: Cyanosis, Edema Lower Extremity: Present: Normal Inspection. No: Edema Neurological: Present: GCS=15, CN II-XII Intact, Speech Normal Skin: Present: Warm, Dry, Normal Color. No: Rashes Psychiatric: Present: Alert, Oriented x 3, Normal Insight, Normal Concentration Medical Decision Making ED Course and Treatment: 12/17/18 15:43 CHF vs. IL vs. PE vs. Pneumonia -ekg -cxr -labs -IVF/pepcid and nasal cannula oxygen -Observe and reassess 12/17/18 16:31 -Pt request pain med benadryl and morphine, ordered 12/17/18 17:54 -EKG: Sinus Tachycardia @ 102 BPM, no ST elevation or depression, no T wave inversion -Chest xray: No focal consolidation. -Labs show no acute findings except plt 95, K+3.4 (potassium chloride 20meq po ordered). -Mg within normal limit -Dimer is negative -BNP within normal limit -Trop is negative after 24 hours. -HEART score is low -I reviewed all labs and radiology results with her, stated that she feels better, wants to go home. I offered admission for her but she refused. -Discharge home with zithromax, prednisone, bromfed dm, pepcid, follow up with your own pmd and zoning engineer/staff field engineer oncologist/pulmonlogist within 2 days, avoid smoking, return to the ER for any new or worsening signs or symptoms. - RAD Interpretation Radiology Orders: Chest xray:. HISTORY: cough and chest pain COMPARISON: Chest x-ray performed 04/30/18 TECHNIQUE: Chest PA and lateral FINDINGS: LUNGS: No focal consolidation. Please note that chest x-ray has limited sensitivity for the detection of pulmonary masses. PLEURA: No significant pleural effusion identified. No definite pneumothorax . CARDIOVASCULAR: Heart size appears within normal limits. No atherosclerotic calcification present. OSSEOUS STRUCTURES: No acute osseous abnormality identified. VISUALIZED UPPER ABDOMEN: Unremarkable. OTHER FINDINGS: Bilateral nipple rings. IMPRESSION: No focal consolidation. Talent Director: Radiologist - EKG Interpretation EKG Interpretation (Text): 12/17/18 15:45 EKG: Sinus Tachycardia @ 102 BPM, no ST elevation or depression, no T wave inversion Interpreted by ED Physician: Yes Type: 12 lead EKG - PA / TRAVELING PLANT OPERATOR / Resident Statement MD/DO has reviewed & agrees with the documentation as recorded. Disposition/Present on Arrival - Present on Arrival Any Indicators Present on Arrival: No History of DVT/PE: Yes History of Uncontrolled Diabetes: No Urinary Catheter: No History of Decub. Ulcer: No History Surgical Site Infection Following: None - Disposition Have Diagnosis and Disposition been Completed?: Yes Diagnosis: Thrombocytopenia, Hypokalemia, Bronchitis, Atypical chest pain Disposition: HOME/ ROUTINE Disposition Time: 17:55 Patient Plan: Discharge Patient Problems: Current Active Problems Problem Status Onset Hypokalemia Acute Thrombocytopenia Acute Condition: IMPROVED Discharge Instructions (ExitCare): Chest Pain (ED) Additional Instructions: -Discharge home with zithromax, prednisone, bromfed dm, pepcid, follow up with your own pmd and zoning engineer/staff field engineer oncologist/pulmonlogist within 2 days, avoid smoking, return to the ER for any new or worsening signs or symptoms. Prescriptions: Azithromycin [Zithromax] 250 mg PO DAILY #6 tab Brompheniramine/Pseudoephed/Dm [Bromfed Dm Cough 118 ml] 10 ml PO QID PRN #250 ml PRN Reason: Other Famotidine [Pepcid] 20 mg PO BID #20 tab Prednisone 50 mg PO DAILY #5 tablet Referrals: Katalina Crowe MD [Staff Provider] - Follow up with primary Katalina Beck MD [Staff Provider] - Follow up with primary Maxim Joseph MD [Staff Provider] - Follow up with primary [facility] [place] - Follow up with primary Forms: [facility] (Moz[place]ican), WORK NOTE
[2018-12-17 16:15] LABS: BASO # 0.01 K/mm3 (0.0-2.0); BASO % 0.2 % (0.0-3.0); EOS # 0.1 (0.0-0.7); EOS % 1.8 % (1.5-5.0); GRAN # 4.4 (1.4-6.5); GRAN % 73.7 % (50.0-68.0); HEMOGLOBIN 13.1 g/dL (12.0-16.0); LYMPH # 0.9 (1.2-3.4); LYMPH % 14.4 % (22.0-35.0); MEAN CELL VOLUME 92.2 fl (80.0-105.0); MEAN CORPUSCULAR HEMOGLOBIN 31.1 pg (25.0-35.0); MEAN CORPUSCULAR HGB CONC 33.8 g/dl (31.0-37.0); MEAN PLATELET VOLUME 12.4 fl (7.0-11.0); MONO # 0.6 (0.1-0.6); MONO % 9.9 % (1.0-6.0); RBC 4.21 10^6/uL (3.5-6.1); RED CELL DISTRIBUTION WIDTH 13.1 % (11.5-14.5)
[2018-12-17 16:28] LABS: ALB/GLOB RATIO 1.4 (1.1-1.8); ALBUMIN 4.6 g/dL (3.0-4.8); ALT/SGPT 24 U/L (7-56); AST/SGOT 26 U/L (14-36); BLOOD UREA NITROGEN 9 mg/dL (7-21); CALCIUM 9.5 mg/dL (8.4-10.5); GFR NON-AFRICAN AMERICAN > 60; LIPASE 108 U/L (23-300)
[2018-12-17] MEDS ORDERED: DiphenhydrAMINE 50 mg/ml Inj IVP STA (16:30)
[2018-12-17] MEDS ORDERED: Potassium Chloride 20 mEq ER Tab PO STA (16:30)
[2018-12-17] MEDS ORDERED: Morphine 4 mg/ml ISec IVP STA (16:30)
[2018-12-17 16:38] LABS: B-TYPE NATRIURETIC PEPTIDE 13.4 pg/mL (0-450); TROPONIN I < 0.01 ng/mL
[2018-12-17] MEDS ORDERED: Albuterol-Ipratrop 3 mg / 0.5 (3 ml) UD IH STA (17:00)
--- NOTE | 2018-12-17 17:40 | RAD ---
HISTORY: cough and chest pain COMPARISON: Chest x-ray performed 04/30/18 TECHNIQUE: Chest PA and lateral FINDINGS: LUNGS: No focal consolidation. Please note that chest x-ray has limited sensitivity for the detection of pulmonary masses. PLEURA: No significant pleural effusion identified. No definite pneumothorax . CARDIOVASCULAR: Heart size appears within normal limits. No atherosclerotic calcification present. OSSEOUS STRUCTURES: No acute osseous abnormality identified. VISUALIZED UPPER ABDOMEN: Unremarkable. OTHER FINDINGS: Bilateral nipple rings. IMPRESSION: No focal consolidation.
[2018-12-17 18:56] VITALS: BP 106/70; PULSE 92
--- NOTE | 2018-12-18 09:05 | CARD ---
APPROVED REPORT Date of service: 12/17/2018 EKG Measurement Heart [id number] <Conclusion> Sinus tachycardia Otherwise normal ECG
== END 2018-12-17 21:25 | disposition home or self-care (01) ==
LOC: ED 15:17
DX: J40 Bronchitis, not specified as acute or chronic (principal); R07.89 Other chest pain; D69.6 Thrombocytopenia, unspecified; E87.6 Hypokalemia; Z86.711 Personal history of pulmonary embolism; Z86.718 Personal history of other venous thrombosis and embolism; F17.210 Nicotine dependence, cigarettes, uncomplicated
CPT/HCPCS: 71046; 80053; 81025; 83690; 83735; 83880; 84484; 84702; 85025; 85378; 93005; 96374; 96375; 99284; J1200; J2270